=== PATIENT | male | born 1980 | race Hispanic/Latino ===

== ENCOUNTER 2019-04-06 08:41 | Day surgery (SDC) | payer OTHER ==
[~2019-04-06 08:41] MED LIST: NACL 0.9% 1000 ML 1,000 ML IV SCH
[2019-04-06] MEDS ORDERED: VERSED IV NR (10:00)
--- NOTE | 2019-04-06 10:01 | Anesthesia Day of Surgery ---
Anesthesia Day of Surgery - Day of Surgery Patient Examined: Yes Patient H&P Reviewed: Yes Patient is NPO: Yes
--- NOTE | 2019-04-06 10:01 | Anesthesia Consultation ---
Anesthesia Consult and Med Hx Date of service: 04/06/19 - Airway Anesthetic Teeth Evaluation: Good ROM Head & Neck: Adequate Mental/Hyoid Distance: Adequate Mallampati Class: Class I Intubation Access Assessment: Good (possible difficult mask 2/2 large mckeon) - Pulmonary Exam CTA: Yes - Cardiac Exam Cardiac Exam: RRR - Pre-Operative Health Status ASA Pre-Surgery Classification: ASA2 Proposed Anesthetic Plan: MAC - Pulmonary Hx Smoking: Yes (1.5-2PPD; started age 9) Hx Respiratory Symptoms: No COPD: No Home Oxygen Therapy: No Hx Sleep Apnea: No - Cardiovascular System Hx Hypertension: No Hx Heart Attack/AMI: No Hx Percutaneous Transluminal Coronary Angioplasty (PTCA): No Hx Cardia Arrhythmia: No - Central Nervous System Hx Seizures: No CVA: No Hx Psychiatric Problems: Yes (PTSD) - Gastrointestinal Hx Gastroesophageal Reflux Disease: No - Endocrine Hx Renal Disease: No Hx Liver Disease: Yes (fatty liver disease; no hx liver failure) Hx Insulin Dependent Diabetes: No Hx Non-Insulin Dependent Diabetes: No Hx Thyroid Disease: No - Other Systems Hx Obesity: Yes - Additional Comments Anesthesia Medical History Comments: No hx anesthetic complications.
[2019-04-06] MEDS ORDERED: VERSED ONE (10:10)
[2019-04-06] MEDS ORDERED: DIPRIVAN 10 MG/ML IV ONE ×2 (10:28→10:29)
[2019-04-06] MEDS ORDERED: WATER FOR IRRIG STERILE IR ONE (10:57)
[2019-04-06] MEDS ORDERED: WATER FOR IRRIG STERILE ONE (10:58)
[2019-04-06] MEDS ORDERED: XYLOCAINE 2% UROJET ONE (10:58)
[2019-04-06] MEDS ORDERED: XYLOCAINE 2% UROJET UR ONE (11:01)
--- NOTE | 2019-04-06 11:27 | Procedure Note ---
Date of procedure: 04/06/19 Pre-op diagnosis: GERD/ Colon Polyp Screening (F/H/O Cancer/ Hematochezia Post-op diagnosis: other (Moderate,Distal Ersoive Esophagitis/ Hiatal Hernia/ Gastritis/ Gastric Erosion/ Moderate,Internal Hemorrhoids (s/p Banding x 4)/ No Colon Polyp or dDiverticular Disease was noted) Procedure: EGD with Biopsy/ Colonoscopy/ Flexible sigmoidoscopy with Banding x 4 Anesthesia: MAC Surgeon: SUSANNA TERRAZAS Estimated blood loss: minimal Specimen disposition: to lab Condition: stable Disposition: same day (Treat with PPi and encourage patient to take Sitz bath and avoid aspirin and NSAID for 5 days. Follow up in 1 to 2 weeks ([phone]).)
--- NOTE | 2019-04-06 11:28 | Operative Report ---
PROCEDURE: Esophagogastroduodenoscopy with biopsy. INDICATIONS: This is a 39-year-old white male who has been having GERD symptoms. EGD was done to assess for the severity of the esophagitis. DESCRIPTION OF PROCEDURE: The procedure was done after getting informed consent with MAC anesthesia. Instrument was passed to the hypopharynx into the esophagus, which showed severe distal erosive esophagitis. Biopsy was done from the distal esophagus. Stomach showed a hiatal hernia on the retroverted view and some antral erosion and gastritis. Biopsy was done from the gastric body and the gastric antrum to rule out for H. pylori. The pylorus is patent. The duodenum in the first and the second portion appeared normal. There was minimal bleeding from the biopsy sites. No complications associated with the procedure. ASSESSMENT: Moderate GERD symptoms, moderate distal erosive esophagitis, mild to moderate hiatal hernia. Antral erosion and gastritis. Again, there was minimal bleeding from the biopsy sites. No complications associated with the procedure. PLAN: Plan is to treat the patient with PPI. The patient avoid aspirin and aspirin-related products to do a colonoscopy for further assessment since the patient has a family history of cancer, as part of colon polyp screening, the patient also complains on occasion hematochezia and to do banding if needed and have the patient follow up in the office in 1-2 weeks' time. VICENTE Boyd and yoni Elise were in the room throughout the entirety of the procedure. JOB# [id number] LUÍS/JOSE LUIS
--- NOTE | 2019-04-06 12:00 | Operative Report ---
PROCEDURE: Flexible sigmoidoscopy with banding x 4. INDICATIONS: A 39-year-old white male who has been having some hematochezia. Colonoscopy done since the patient has a family history of colon cancer. Colonoscopy did not show any polyps or diverticular disease, but the patient did have moderate internal hemorrhoids for which banding was done using the EGD scope with the banding apparatus mounted. The scope was introduced and retroflexed for the largest hemorrhoids were then suctioned into the suction channel, there were 5 bands deployed, one did not take and the remaining four bands were used to band for the largest internal hemorrhoids. ASSESSMENT AND PLAN: Hematochezia secondary to moderate internal hemorrhoids, status post banding x 4 at the end of the procedure, lidocaine gel was instilled into the rectal vault. The patient will be asked to take Sitz bath. Avoid aspirin and aspirin-related products and follow up in the office in 1-2 weeks' time and to avoid aspirin and aspirin-related products for the next 5-6 days. Procedure was done in the GI lab with the assistance of anesthesia and the assistance in the presence of RN, Lizzie Boyd and yoni Elise. JOB# [id number] LUÍS/JOSE LUIS
[2019-04-06 12:02] VITALS: BP 143/85
--- NOTE | 2019-04-06 13:37 | Operative Report ---
PROCEDURE: Colonoscopy. A 39-year-old white male with a family history of cancer and on occasion has hematochezia. Colonoscopy was done to assess for the problem. Procedure was done after getting informed consent with MAC anesthesia. Initial rectal exam was unremarkable. Instrument was passed through the rectum onto the cecum, which was identified by the ileocecal valve and the appendiceal orifice. Visualization was fair. The scope was withdrawn to the hepatic flexure and then reintroduced. No significant pathology was noted in the cecum, ascending colon, transverse colon, descending colon, and sigmoid. There is no evidence of any polyps, colitis or diverticular disease. No biopsies were done and there was no bleeding associated with the procedure. The rectum did show moderate internal hemorrhoid, which may have been the cause of the patient's hematochezia and may require banding. ASSESSMENT: Family history of cancer of colon polyp screening, no colon polyps or diverticular disease noted. Moderate internal hemorrhoid, which is the possible cause of the hematochezia. Plan is to do a flexible sigmoidoscopy with banding. The patient will be treated with PPI because of the upper endoscopy findings of [id number] esophagitis and gastritis and also asked to avoid aspirin and aspirin-related products since the patient had biopsy done involving the EGD and follow up in the office in 1-2 weeks' time. Procedure was done with the assistance of anesthesia and assistance of the GI lab team, which included Lizzie ZHANG and Gosia vallejo. JOB# [id number] LUÍS/JOSE LUIS
== END 2019-04-06 08:42 | disposition home or self-care (01) ==
LOC: GIO 08:41
DX: K21.0 Gastro-esophageal reflux disease with esophagitis (principal); K29.70 Gastritis, unspecified, without bleeding; K64.8 Other hemorrhoids; K44.9 Diaphragmatic hernia without obstruction or gangrene; K92.1 Melena; F17.210 Nicotine dependence, cigarettes, uncomplicated; K76.89 Other specified diseases of liver; E66.9 Obesity, unspecified; Z68.41 Body mass index [BMI] 40.0-44.9, adult; Z80.0 Family history of malignant neoplasm of digestive organs; Z79.899 Other long term (current) drug therapy; Z98.890 Other specified postprocedural states
CPT/HCPCS: 43239; 45378; 46221; 88305; 88342; J2250; J2704; J7030